=== PATIENT | female | born 1990 | race Two or more races ===

== ENCOUNTER 2024-04-01 11:15 | Inpatient (IN) | payer OTHER ==
[~2024-04-01] VITALS: Ht 162.6 cm; Wt 113.4 kg
--- NOTE | 2024-04-01 11:39 | ED.PDOC ---
GI ASSESSMENT HPI Comments 33 y.o female with PMH of HTN, gastric bypass and presents to the ED for a chief complaint of generalized abdominal pain associated with nausea and vomiting that started 5 days ago. Patient describes pain as sharp, constant, worse today with a rating of 9/10 on the pain scale. Patient is states she is unable to keep food and fluids down. Patient reports liquid diarrhea, but no dysuria, hematuria, fever, chills, hematemesis. Patient denies any substance, alcohol or tobacco use. Time Seen by MD: 11:21 Reviewed Notes: Nurses Notes, Medications, Allergies Allergies: Coded Allergies: NSAIDs (Verified Allergy, Unknown, 04/01/24) Information Source: Patient Mode of Arrival: Ambulatory Timing: Days (5) Duration: Since onset Quality: Sharp Vomitus: Hard Stool: Normal Severity: Moderate Recent: None Recent Hx of: None Pain Location: RLQ Modifying Factors: Nothing Associated sign and symptoms: Nausea, Vomiting, Abdominal Pain Past Medical History PAST MEDICAL HISTORY: HTN Surgical History: Surgical History (Other): Gastric bypass WATER SAFETY INSTRUCTOR History: No Pertinent WATER SAFETY INSTRUCTOR History Family History Family History: Reviewed,noncontributory to illness, No family hx of Cancer, No family hx of DM, No family hx of Heart robert, No family hx of HTN, No family hx ofKidney robert, No family hx of Liver robert, No family hx of Lung robert, No family hx of Stroke Social History Smoker: Non-Smoker Alcohol: Denies ETOH Use Drugs: Denies Drug Use Lives In: Home Constitutional: denies: chills, diaphoresis, fatigue, fever, malaise, sweats, weakness, others EENTM: denies: blurred vision, double vision, ear bleeding, ear discharge, ear drainage, ear pain, ear ringing, eye pain, eye redness, hearing loss, mouth pain, mouth swelling, nasal discharge, nose bleeding, nose congestion, nose pain, photophobia, tearing, throat pain, throat swelling, voice changes, others Respiratory: denies: cough, hemoptysis, orthopnea, SOB at rest, shortness of breath, SOB with excertion, stridor, wheezing, others Cardiovascular: denies: chest pain, dizzy spells, diaphoresis, Dyspnea on exertion, edema, irregular heart beat, left arm pain, lightheadedness, palpitations, PND, syncope, others Gastrointestinal: reports: abdominal pain, nausea, vomiting; denies: abdomen distended, blood streaked bowels, constipated, diarrhea, dysphagia, difficulty swallowing, hematemesis, melena, poor appetite, poor fluid intake, rectal bleeding, rectal pain, others Genitourinary: denies: abnormal vagina bleeding, burning, dyspareunia, dysuria, flank pain, frequency, hematuria, incontinence, pain, , vagina discharge, urgency, others Neurological: denies: dizziness, fainting, headache, left sided numbness, left sided weakness, numbness, paresthesia, pre-existing deficit, right sided numbness, right sided weakness, seizure, speech problems, tingling, tremors, weakness, others Musculoskeletal: denies: back pain, gout, joint pain, joint swelling, muscle pain, muscle stiffness, neck pain, others Integumetry: denies: bruises, change in color, change in hair/nails, dryness, laceration, lesions, lumps, rash, wounds, others Allergic/Immunocompromised: denies: Difficulty Healing, Frequent Infections, H odalis, Itching, others Hematologic/Lymphatic: denies: anemia, blood clots, easy bleeding, easy bruising, swollen glands, others Endocrine: denies: excessive hunger, excessive sweating, excessive thirst, excessive urination, flushing, intolerance to cold, intolerance to heat, unexplained weight gain, unexplained weight loss, others Psychiatric: denies: anxiety, bipolar disorder, depression, hopeless, panic disorder, schizophrenia, sleepless, suicidal, others All Other Systems: Reviewed and Negative Physical Exam General Appearance: Moderate Distress, Obese HEENT: Normal ENT Inspection Neck: Full Range of Motion, Normal Inspection Respiratory: Lungs Clear, No Accessory Muscle Use, No Respiratory Distress, Normal Breath Sounds Cardiovascular: No Edema, No JVD, Regular Rate/Rhythm Breast Exam: Deferred Gastrointestinal: Diffuse, Soft, Tenderness Genitalia: Deferred Pelvic: Deferred Rectal: Deferred Extremities: Normal inspection, Normal range of motion, Non-tender, No pedal edema Neurologic: Alert, No Motor Deficits, Normal Affect, Normal Mood, No Sensory Deficits Cerebellar Function: NOT DONE Reflexes: NOT DONE Skin: Dry, Normal Color, Warm Lymphatic: NOT DONE Was a procedure done? Was a procedure done?: No GI differential Dx Differential Diagnosis: Appendicitis, Bowel Obstruction, Cholecystitis, Esophagitis, Gastritis/PUD, Gastroenteritis, Inflammatory BD, Ischemic Bowel, Pancreatitis, UTI, Dehydration, Diabetes/ DKA, Electrolyte Imbalance, Food Poisoning, , Bacterial, Parasitic, Viral, Hypovolemia, Impaction X-Ray, Labs, Meds, VS Vital Signs Date Time Temp Pulse Resp B/P (MAP) Pulse Ox O2 Delivery O2 Flow Rate FiO2 04/01/24 12:28 76 17 141/96 04/01/24 12:03 83 04/01/24 11:58 79 22 168/116 04/01/24 11:46 98.8 92 16 143/79 (100) 99 Lab Test 04/01/24 11:38 Range/Units White Blood Count 12.7 H 4.4-10.8 10^3/uL Red Blood Count 4.22 4.0-5.20 10^6/uL Hemoglobin 13.3 12.2-16.2 g/dL Hematocrit 39.3 36.0-46.0 % Mean Corpuscular Volume 93.1 80.0-100.0 fL Mean Corpuscular Hemoglobin 31.7 28.0-32.0 pg Mean Corpuscular Hemoglobin Concent 34.0 32.0-36.0 g/dL Red Cell Distribution Width 14.7 H 11.8-14.3 % Platelet Count 263 140-450 10^3/uL Mean Platelet Volume 9.6 6.9-10.8 fL Neutrophils (%) (Auto) 83.1 H 37.0-80.0 % Lymphocytes (%) (Auto) 10.5 10.0-50.0 % Monocytes (%) (Auto) 5.8 0.0-12.0 % Eosinophils (%) (Auto) 0.4 0.0-7.0 % Basophils (%) (Auto) 0.2 0.0-2.0 % Neutrophils # (Auto) 10.5 H 1.6-8.6 10 ^3/uL Lymphocytes # (Auto) 1.3 0.4-5.4 10 ^3/uL Monocytes # (Auto) 0.7 0-1.3 10 ^3/uL Eosinophils # (Auto) 0.1 0-0.8 10 ^3/uL Basophils # (Auto) 0 0-0.2 10 ^3/uL Nucleated Red Blood Cells 0.0 % Sodium Level 138 136-145 mmol/L Potassium Level 4.2 3.5-5.1 mmol/L Chloride Level 106 98-107 mmol/L Carbon Dioxide Level 27 20-31 mmol/L Anion Gap 5 5-15 Blood Urea Nitrogen 8 L 9-23 mg/dL Creatinine 0.68 0.550-1.02 mg/dL Glomerular Filtration Rate Calc 117 >90 mL/min BUN/Creatinine Ratio 11.8 10.0-20.0 Serum Glucose 103 74-106 mg/dL Lactic Acid Level 1.4 0.4-2.0 mmol/L Calcium Level 9.9 8.7-10.4 mg/dL Total Bilirubin 0.5 0.2-1.0 mg/dL Aspartate Amino Transferase (AST) 15 13-40 U/L Alanine Aminotransferase (ALT) 21 7-40 U/L Alkaline Phosphatase 66 46-116 U/L Total Protein 7.4 5.7-8.2 g/dL Albumin 4.4 3.2-4.8 g/dL Lipase 41 12-53 U/L Beta HCG, Quantitative 0.2 L 1.5-4.2 mIU/mL Current Medications Medications (Trade) Dose Ordered Sig/Madina Route Start Time Stop Time Status Last Admin Sodium Chloride 1,000 ml @ 1,000 mls/hr Q1H ONCE IV 04/01/24 11:30 04/01/24 12:29 DC 04/01/24 11:59 Ondansetron HCl (Zofran) 4 mg ONCE ONCE IV 04/01/24 11:30 04/01/24 11:31 DC 04/01/24 11:59 Morphine Sulfate 4 mg ONCE ONCE IV 04/01/24 11:30 04/01/24 11:31 DC 04/01/24 11:58 PROCEDURE(s): ABPL - CT AB PEL WO CON-NO ORAL OR IV REASON: R sided abd pain, n/v/d ORDER NUMBER(s): [id number], ACCESSION NUMBER(s): [id number] Procedure: CT CT AB PEL WO CON-NO ORAL OR IV 04/01/2024 12:31 PM Indication:R sided abd pain, n/v/d. Comparison Study: None available at time of dictation. Technique: Axial images were obtained and reformatted in coronal and sagittal planes. All CT scans at this medical facility are performed using dose modulation techniques as appropriate to a performed exam including the following: Automated exposure control was utilized; adjustment of the MA and/or KV according to patient size; and use of iterative reconstruction technique. CT Dose: CTDI volume is 25 mGy. Dose-length product is 14 11 mGy*cm FINDINGS: Lower Chest: Trace bilateral pleural effusions Hepatobiliary: Unremarkable. Spleen: Unremarkable. Pancreas: Unremarkable. Adrenal Glands: Unremarkable. tract: The kidneys are normal in size bilaterally without hydronephrosis or nephrolithiasis. The urinary bladder is unremarkable. GI tract: Changes of gastric bypass surgery note. No evidence of small bowel obstruction. Mildly fluid distended small bowel loops in midabdomen proximal to herniation in the umbilicus, where fecal like material is seen. Loops of bowel distal to the hernia are collapsed.Scattered colonic diverticula are noted without evidence of diverticulitis. The appendix is normal. Lymphatics: No mesenteric, retroperitoneal or periportal lymphadenopathy. Vasculature: The abdominal aorta is normal in in caliber. Pelvic Organs: Prominent uterine cervix versus retroverted uterus. No adnexal lesions identified. Trace fluid in the cul-de-sac. Bones/soft tissues: Moderate-sized umbilical hernia measuring 5.5 x 4.2 cm with a neck measuring 2 cm at the neck containing small bowel loop. Multilevel degenerative disc disease of the lumbar spine noted. Other: None. IMPRESSION: 1. Developing small bowel obstruction due to umbilical herniation. The hernia measures 2 cm at the neck. Recommend surgical consultation. 2. Trace bilateral pleural effusions. 3. Scattered colonic diverticula without diverticulitis. 4. Retroverted uterus persists prominent uterine cervix. Recommend further evaluation with pelvic sonogram for better delineation of the anatomy. 5. Trace fluid in the cul-de-sac is of uncertain etiology. X-Ray, Labs, Meds, VS Comment 33-year-old female with a history of gastric bypass and hypertension complaining of abdominal pain, vomiting, and inability to tolerate p.o. food and fluids Vitals remarkable for mildly elevated BP of 143/79 Exam remarkable for diffuse abdominal tenderness to palpation. No rebound or guarding. CT abdomen and pelvis: IMPRESSION: 1. Developing small bowel obstruction due to umbilical herniation. The hernia measures 2 cm at the neck. Recommend surgical consultation. 2. Trace bilateral pleural effusions. 3. Scattered colonic diverticula without diverticulitis. 4. Retroverted uterus persists prominent uterine cervix. Recommend further evaluation with pelvic sonogram for better delineation of the anatomy. 5. Trace fluid in the cul-de-sac is of uncertain etiology. CBC, CMP, lactate and test remarkable for WBC 12.7, no other abnormalities of acute significance. UA pending. Patient treated with the following in the ED: 1 L 0.9 normal saline IV bolus, morphine 4 mg IV, Zofran 4 mg IV. NG tube to low intermittent suction was ordered. Stat surgical consultation was placed. Plan is to admit the patient for decompression of SBO and surgical evaluation. Time of 1ST Reevaluation: 11:35 Reevaluation 1ST: Unchanged Time of 2ND Reevaluation: 13:21 Reevaluation 2ND: Improved Patient Education/Counseling: Diagnosis, Treatment, Prognosis Family Education/Counseling: Diagnosis, Treatment, Prognosis Departure 1 Departure Time of Disposition: 13:21 Impression: Primary Impression: Small bowel obstruction Additional Impression: Umbilical hernia Qualified Codes: K42.0 - Umbilical hernia with obstruction, without gangrene Disposition: 09 ADMITTED INPATIENT Admit to: Med Surg Condition: Guarded Critical Care Note Critical Care Time?: No Stability Stability form required: No I personally scribed for LASHANDA MCKENZIE MD ([facility]) on 04/01/24 at 11:39. Electronically submitted by Qing Holcomb ([facility]). I personally scribed for LASHANDA MCKENZIE MD ([facility]) on 04/01/24 at 13:52. Electronically submitted by Qing Holcomb ([facility]). LASHANDA MCKENZIE MD Apr 01, 2024 11:39
[2024-04-01] MEDS: MORPHINE SULFATE 4 MG/ML SYR/VIAL IV ONE (11:58)
[2024-04-01] MEDS: SODIUM CHLORIDE 0.9% 1,000 ML IV ONE ×2 (11:59→16:56)
[2024-04-01] MEDS: ONDANSETRON HCL 4 MG/2 ML VIAL IV ONE ×2 (11:59→17:30)
[2024-04-01 12:00] VITALS: PULSE 93; RESP 22; O2SAT 99
[2024-04-01 12:15] LABS: Basophils # (auto) 0 10 ^3/uL (0-0.2); Basophils % (auto) 0.2 % (0.0-2.0); Eosinophils # (auto) 0.1 10 ^3/uL (0-0.8); Eosinophils % (auto) 0.4 % (0.0-7.0); Hematocrit 39.3 % (36.0-46.0); Hemoglobin 13.3 g/dL (12.2-16.2); Lymphocytes # (auto) 1.3 10 ^3/uL (0.4-5.4); Lymphocytes % (auto) 10.5 % (10.0-50.0); Mean Corpuscular Hemoglobin 31.7 pg (28.0-32.0); Mean Corpuscular Volume 93.1 fL (80.0-100.0); Monocytes # (auto) 0.7 10 ^3/uL (0-1.3); Monocytes % (auto) 5.8 % (0.0-12.0); Neutrophils # (auto) 10.5 10 ^3/uL (1.6-8.6); Neutrophils % (auto) 83.1 % (37.0-80.0); Platelet Count (auto) 263 10^3/uL (140-450); Red Blood Cells 4.22 10^6/uL (4.0-5.20); Red Cell Distribution Width 14.7 % (11.8-14.3); White Blood Cell 12.7 10^3/uL (4.4-10.8)
[2024-04-01 12:21] LABS: Alanine Aminotransferase 21 U/L (7-40); Albumin 4.4 g/dL (3.2-4.8); Alkaline Phosphatase 66 U/L (46-116); Anion Gap 5 (5-15); Aspartate Aminotransferase 15 U/L (13-40); BUN/Creatinine Ratio 11.8 (10.0-20.0); Bilirubin, Total 0.5 mg/dL (0.2-1.0); Blood Urea Nitrogen 8 mg/dL (9-23); Calcium 9.9 mg/dL (8.7-10.4); Carbon Dioxide 27 mmol/L (20-31); Chloride 106 mmol/L (98-107); Glucose 103 mg/dL (74-106); Potassium 4.2 mmol/L (3.5-5.1); Sodium 138 mmol/L (136-145); Total Protein 7.4 g/dL (5.7-8.2)
[2024-04-01 12:34] LABS: Lipase 41 U/L (12-53)
--- NOTE | 2024-04-01 13:15 | DVH ---
Procedure: CT CT AB PEL WO CON-NO ORAL OR IV 04/01/2024 12:31 PM Indication:R sided abd pain, n/v/d. Comparison Study: None available at time of dictation. Technique: Axial images were obtained and reformatted in coronal and sagittal planes. All CT scans at this medical facility are performed using dose modulation techniques as appropriate t o a performed exam including the following: Automated exposure control was utilized; adjustment of th e MA and/or KV according to patient size; and use of iterative reconstruction technique. CT Dose: CTDI volume is 25 mGy. Dose-length product is 14 11 mGy*cm FINDINGS: Lower Chest: Trace bilateral pleural effusions Hepatobiliary: Unremarkable. Spleen: Unremarkable. Pancreas: Unremarkable. Adrenal Glands: Unremarkable. tract: The kidneys are normal in size bilaterally without hydronephrosis or nephrolithiasis. The urinary bladder is unremarkable. GI tract: Changes of gastric bypass surgery note. No evidence of small bowel obstruction. Mildly flui d distended small bowel loops in midabdomen proximal to herniation in the umbilicus, where fecal like material is seen. Loops of bowel distal to the hernia are collapsed.Scattered colonic diverticula ar e noted without evidence of diverticulitis. The appendix is normal. Lymphatics: No mesenteric, retroperitoneal or periportal lymphadenopathy. Vasculature: The abdominal aorta is normal in in caliber. Pelvic Organs: Prominent uterine cervix versus retroverted uterus. No adnexal lesions identified. Tr deb fluid in the cul-de-sac. Bones/soft tissues: Moderate-sized umbilical hernia measuring 5.5 x 4.2 cm with a neck measuring 2 cm at the neck containing small bowel loop. Multilevel degenerative disc disease of the lumbar spine no ryan. Other: None. IMPRESSION: 1. Developing small bowel obstruction due to umbilical herniation. The hernia measures 2 cm at the ne ck. Recommend surgical consultation. 2. Trace bilateral pleural effusions. 3. Scattered colonic diverticula without diverticulitis. 4. Retroverted uterus persists prominent uterine cervix. Recommend further evaluation with pelvic so nogram for better delineation of the anatomy. 5. Trace fluid in the cul-de-sac is of uncertain etiology.
--- NOTE | 2024-04-01 14:43 | DVH ---
EXAM: XY CHEST XRAY 1 VIEW TECHNIQUE: Single frontal chest radiograph CLINICAL HISTORY: NG tube placement COMPARISON: None Findings/Impression: Frontal chest radiograph demonstrates no acute osseous or superficial soft tissue abnormalities. Enteric tube is overlying the plane of the stomach. The trachea is midline. The cardiac silhouette and mediastinum are within normal limits. No pneumothorax, pleural effusions, or consolidations.
--- NOTE | 2024-04-01 15:30 | DVHINCON2 ---
Date of service: Apr 01, 2024 Allergies: Coded Allergies: NSAIDs (Verified Allergy, Unknown, 04/01/24) Vital Signs Vital Signs Date Time Temp Pulse Resp B/P (MAP) Pulse Ox O2 Delivery O2 Flow Rate FiO2 04/01/24 12:28 76 17 141/96 04/01/24 11:46 98.8 99 Labs/Diagnostic Data Labs Test 04/01/24 11:38 Range/Units White Blood Count 12.7 H 4.4-10.8 10^3/uL Red Blood Count 4.22 4.0-5.20 10^6/uL Hemoglobin 13.3 12.2-16.2 g/dL Hematocrit 39.3 36.0-46.0 % Mean Corpuscular Volume 93.1 80.0-100.0 fL Mean Corpuscular Hemoglobin 31.7 28.0-32.0 pg Mean Corpuscular Hemoglobin Concent 34.0 32.0-36.0 g/dL Red Cell Distribution Width 14.7 H 11.8-14.3 % Platelet Count 263 140-450 10^3/uL Mean Platelet Volume 9.6 6.9-10.8 fL Neutrophils (%) (Auto) 83.1 H 37.0-80.0 % Lymphocytes (%) (Auto) 10.5 10.0-50.0 % Monocytes (%) (Auto) 5.8 0.0-12.0 % Eosinophils (%) (Auto) 0.4 0.0-7.0 % Basophils (%) (Auto) 0.2 0.0-2.0 % Neutrophils # (Auto) 10.5 H 1.6-8.6 10 ^3/uL Lymphocytes # (Auto) 1.3 0.4-5.4 10 ^3/uL Monocytes # (Auto) 0.7 0-1.3 10 ^3/uL Eosinophils # (Auto) 0.1 0-0.8 10 ^3/uL Basophils # (Auto) 0 0-0.2 10 ^3/uL Nucleated Red Blood Cells 0.0 % Sodium Level 138 136-145 mmol/L Potassium Level 4.2 3.5-5.1 mmol/L Chloride Level 106 98-107 mmol/L Carbon Dioxide Level 27 20-31 mmol/L Anion Gap 5 5-15 Blood Urea Nitrogen 8 L 9-23 mg/dL Creatinine 0.68 0.550-1.02 mg/dL Glomerular Filtration Rate Calc 117 >90 mL/min BUN/Creatinine Ratio 11.8 10.0-20.0 Serum Glucose 103 74-106 mg/dL Lactic Acid Level 1.4 0.4-2.0 mmol/L Calcium Level 9.9 8.7-10.4 mg/dL Total Bilirubin 0.5 0.2-1.0 mg/dL Aspartate Amino Transferase (AST) 15 13-40 U/L Alanine Aminotransferase (ALT) 21 7-40 U/L Alkaline Phosphatase 66 46-116 U/L Total Protein 7.4 5.7-8.2 g/dL Albumin 4.4 3.2-4.8 g/dL Lipase 41 12-53 U/L Beta HCG, Quantitative 0.2 L 1.5-4.2 mIU/mL Assessment 33 YEAR OLD FEMALE HAD OBESITY OPERATION ABOUT 10 YEARS AGO CAME IN TODAY WITH AN INCARCERATED UMBILICAL HERNIA WITH DEVELOPING SMALL BOWEL OBSTRUCTION. NG TUBE IN PLACE, ABDOMEN NON [id number], TENDER ,DEEP UMBILICAL HERNIA(IRREDUCIB LE). OPERATION, RISKS AND COMPLICATIONS EXPLAINED (MOTHER AT BEDSIDE) Plan discussed with: Patient, Other DIPTI HAWKINS MD Apr 01, 2024 15:30
[2024-04-01] MEDS ORDERED: MIDAZOLAM HCL 2MG/2ML 2ml VIAL (1mg/ml) ONE (15:31)
[2024-04-01] MEDS ORDERED: fentaNYL CITRATE 100 MCG/2 ML VL ONE ×2 (15:31→16:59)
[2024-04-01] MEDS ORDERED: KETAMINE 50mg/ML 1ml syringe ONE (15:33)
[2024-04-01] MEDS ORDERED: diphenhdrAMINE HCL 50 MG/1 ML VL ONE (15:52)
[2024-04-01] MEDS ORDERED: LABE100T7 PO (16:01)
[2024-04-01] MEDS ORDERED: cefTRIAXone 1GM/50ML D5W 50 ML IV ONE (16:15)
[2024-04-01] MEDS ORDERED: ONDANSETRON HCL 4 MG/2 ML VIAL IV PRN (16:15)
[2024-04-01] MEDS ORDERED: SODIUM CHLORIDE 0.9% 1,000 ML IV SCH (16:15)
[2024-04-01] MEDS: BUPIVACAINE HCL 50 ML ONE (16:24)
[2024-04-01] MEDS: LIDOCAINE W/ EPINEPHRINE 2% INJ 20ML VIAL ONE (16:30)
[2024-04-01] MEDS ORDERED: NEOSTIGMINE 1 MG/ML INJ (10mg/10ML VIAL) ONE (16:43)
--- NOTE | 2024-04-01 16:45 | DVHHP2 ---
History of Present Illness Reason for Visit: Abdominal pain History of Present Illness 33 yo obese female with history htn and bypass comes to the ed with acute abdominal pain 03/02 with nausea and vomiting and severe pain patient had CT scan done in the ed showing obstruction and hernia Cardiovascular: HTN Review of Systems Constitutional: No: Fever, Chills, Sweats, Weakness, Malaise, Other Eyes: No: Pain, Vision change, Conjunctivae inflammation, Eyelid inflammation, Other, Redness ENT: No: Ear pain, Ear discharge, Nose pain, Nose discharge, Nose congestion, Mouth pain, Mouth swelling, Throat pain, Throat swelling, Other Respiratory: No: Cough, Dry, Shortness of breath, SOB with excertion, Wheezing, Hemoptysis, Pleuritic Pain, Sputum, Wheezing, Other Cardiovascular: No: Chest Pain, Palpitations, Orthopnea, Paroxysmal Noc. Dyspnea, Edema, Lt Headedness, Other Gastrointestinal: No: Nausea, Vomiting, Abdominal Pain, Diarrhea, Constipation, Melena, Hematochezia, Other Genitourinary: No Dysuria, No Frequency, No Incontinence, No Hematuria, No Retention, No Other Musculoskeletal: No: other, neck pain, shoulder pain, arm pain, back pain, hand pain, leg pain, foot pain Skin: No: Rash, Lesions, Jaundice, Bruising, Other Neurological: No: Weakness, Numbness, Incoordination, Change in speech, Confusion, Seizures, Other Allergies: Coded Allergies: NSAIDs (Verified Allergy, Unknown, 04/01/24) Exam Vital Signs Vital Signs Date Time Temp Pulse Resp B/P (MAP) Pulse Ox O2 Delivery O2 Flow Rate FiO2 04/01/24 12:28 76 17 141/96 04/01/24 11:46 98.8 99 General Appearance: Alert, Oriented X3 HEENT: Atraumatic, PERRLA Respiratory: Clear to auscultation, Normal air movement Cardiovascular: Regular rate Abdominal: Normal bowel sounds Extremities: No clubbing, No cyanosis Skin: No rashes Neuro: Normal gait, Normal speech Psych/Mental Status: Mood NL Labs/Xrays Labs Test 04/01/24 11:38 Range/Units White Blood Count 12.7 H 4.4-10.8 10^3/uL Red Blood Count 4.22 4.0-5.20 10^6/uL Hemoglobin 13.3 12.2-16.2 g/dL Hematocrit 39.3 36.0-46.0 % Mean Corpuscular Volume 93.1 80.0-100.0 fL Mean Corpuscular Hemoglobin 31.7 28.0-32.0 pg Mean Corpuscular Hemoglobin Concent 34.0 32.0-36.0 g/dL Red Cell Distribution Width 14.7 H 11.8-14.3 % Platelet Count 263 140-450 10^3/uL Mean Platelet Volume 9.6 6.9-10.8 fL Neutrophils (%) (Auto) 83.1 H 37.0-80.0 % Lymphocytes (%) (Auto) 10.5 10.0-50.0 % Monocytes (%) (Auto) 5.8 0.0-12.0 % Eosinophils (%) (Auto) 0.4 0.0-7.0 % Basophils (%) (Auto) 0.2 0.0-2.0 % Neutrophils # (Auto) 10.5 H 1.6-8.6 10 ^3/uL Lymphocytes # (Auto) 1.3 0.4-5.4 10 ^3/uL Monocytes # (Auto) 0.7 0-1.3 10 ^3/uL Eosinophils # (Auto) 0.1 0-0.8 10 ^3/uL Basophils # (Auto) 0 0-0.2 10 ^3/uL Nucleated Red Blood Cells 0.0 % Sodium Level 138 136-145 mmol/L Potassium Level 4.2 3.5-5.1 mmol/L Chloride Level 106 98-107 mmol/L Carbon Dioxide Level 27 20-31 mmol/L Anion Gap 5 5-15 Blood Urea Nitrogen 8 L 9-23 mg/dL Creatinine 0.68 0.550-1.02 mg/dL Glomerular Filtration Rate Calc 117 >90 mL/min BUN/Creatinine Ratio 11.8 10.0-20.0 Serum Glucose 103 74-106 mg/dL Lactic Acid Level 1.4 0.4-2.0 mmol/L Calcium Level 9.9 8.7-10.4 mg/dL Total Bilirubin 0.5 0.2-1.0 mg/dL Aspartate Amino Transferase (AST) 15 13-40 U/L Alanine Aminotransferase (ALT) 21 7-40 U/L Alkaline Phosphatase 66 46-116 U/L Total Protein 7.4 5.7-8.2 g/dL Albumin 4.4 3.2-4.8 g/dL Lipase 41 12-53 U/L Beta HCG, Quantitative 0.2 L 1.5-4.2 mIU/mL Assessment/Plan Assessment/Plan Admit to Med/Surg Small Bowel Obstruction Surgery Consulted in the ED Patient being taken to surgery Bowel regimen NPO NGT in Place HTN c/w home meds after surgery clearance and completed Plan discussed with: Patient Date of Service: Apr 01, 2024 Billing Provider: TOSHIA CRAWFORD MD Common Visit Codes: [id number] INP/OBS CARE (HIGH) TOSHIA CRAWFORD MD Apr 01, 2024 16:45
[2024-04-01 17:14] VITALS: PULSE 90; RESP 13; O2SAT 94
[2024-04-01] MEDS ORDERED: HYDROmorphone HCL 2 MG/ML VL/or syr IV PRN ×2 (17:30)
[2024-04-01] MEDS: HYDROmorphone HCL 2 MG/ML VL/or syr IV PRN (17:35)
[2024-04-01] MEDS: SUCCINYLCHOLINE CHLORIDE 20 MG/ML 10ML VIAL IV ONE (17:49)
[2024-04-01] MEDS: HYDROmorphone HCL 2 MG/ML VL/or syr ONE (17:49)
--- NOTE | 2024-04-01 17:50 | DVHOP ---
DATE OF SURGERY: 04/01/2024 PREOPERATIVE DIAGNOSIS: Incarcerated umbilical hernia with impending small bowel obstruction. POSTOPERATIVE DIAGNOSIS: Incarcerated umbilical hernia with impending small bowel obstruction. SURGEON: Mikhail Hinds MD GAS REGULATOR REPAIRER: Nahid De Los Santos NP ANESTHESIA: General endotracheal. ANESTHESIOLOGIST: Dr. De La O. PROCEDURE: Repair of incarcerated umbilical hernia. DESCRIPTION OF PROCEDURE: Under adequate anesthesia, with the patient's skin prepped and draped, a vertical incision was made centered around the umbilicus where there was a palpable bulge within the depths of the umbilicus. This was exposed through dissection of much adipose tissue. The defect in the fascia was encountered. However, there were no bowel loops within the defect at the time of this exploration. The fluid was aspirated from the pelvis, which appeared non-turbid to non-hemorrhagic. The sac was excised in its entirety. The fascial defect was then approximated using nonabsorbable sutures. The defect measured approximately 1.5 cm in diameter. The subcutaneous tissues were irrigated, hemostasis meticulously accomplished. Subcutaneous tissues and skin approximated using Monocryl sutures, Dermabond glue and Steri-Strips. The patient remained stable throughout the procedure, left the operating room following an accurate needle and sponge count. Her family was thoroughly informed in the waiting room. Mikhail Hinds MD PF TID: [id number] RECEIPT: [id number]
[2024-04-01 18:28] VITALS: BP 122/75; PULSE 78; RESP 18; O2SAT 99
[2024-04-01] MEDS: D5W/SOD CHL 0.45%/KCL 20MEQ 1,000 ML IV SCH (19:17)
[2024-04-01 21:00] VITALS: BP 112/75; PULSE 85; RESP 16; TEMP 98.9; O2SAT 95
[2024-04-01] MEDS: ceFAZolin 2 GM/D5W50ml 50 ML IV SCH (21:06)
[2024-04-01] MEDS: LABETALOL HCL 200 MG TAB PO SCH (21:09)
[2024-04-02] VITALS (7 sets, daily range): BP systolic 106–128; BP diastolic 64–82; PULSE 71–89; RESP 16–18; TEMP 98.1–98.9; O2SAT 92–98
[2024-04-02 07:17] LABS: Basophils # (auto) 0 10 ^3/uL (0-0.2); Eosinophils # (auto) 0.1 10 ^3/uL (0-0.8); Eosinophils % (auto) 0.6 % (0.0-7.0); Hematocrit 38.8 % (36.0-46.0); Hemoglobin 13.1 g/dL (12.2-16.2); Lymphocytes # (auto) 1.1 10 ^3/uL (0.4-5.4); Lymphocytes % (auto) 7.4 % (10.0-50.0); Mean Corpuscular Hemoglobin 31.9 pg (28.0-32.0); Mean Corpuscular Hgb Conc. 33.9 g/dL (32.0-36.0); Monocytes # (auto) 1.3 10 ^3/uL (0-1.3); Monocytes % (auto) 8.5 % (0.0-12.0); Neutrophils # (auto) 12.7 10 ^3/uL (1.6-8.6); Neutrophils % (auto) 83.5 % (37.0-80.0); Platelet Count (auto) 236 10^3/uL (140-450); Red Blood Cells 4.13 10^6/uL (4.0-5.20); Red Cell Distribution Width 14.8 % (11.8-14.3); White Blood Cell 15.2 10^3/uL (4.4-10.8)
[2024-04-02 07:32] LABS: Chloride 107 mmol/L (98-107); Sodium 139 mmol/L (136-145)
[2024-04-02 07:33] LABS: Anion Gap 4 (5-15); Calcium 9.2 mg/dL (8.7-10.4); Carbon Dioxide 28 mmol/L (20-31)
[2024-04-02 07:38] LABS: BUN/Creatinine Ratio 10.9 (10.0-20.0); Blood Urea Nitrogen 7 mg/dL (9-23); Glucose 104 mg/dL (74-106)
[2024-04-02] MEDS: MORPHINE SULFATE INJ 2 MG/ml SYRG IV PRN (10:14)
--- NOTE | 2024-04-02 14:26 | DVHPN2 ---
Progress Note Date Seen: Apr 02, 2024 Medical Necessity Reason Pt with a Central, PICC or Fol: No Objective vital signs Vital Sign Date Time Temp Pulse Resp B/P (MAP) Pulse Ox O2 Delivery O2 Flow Rate FiO2 04/02/24 12:48 98.3 77 16 113/64 (80) 92 98.3 04/01/24 19:50 Nasal Cannula* 2 28 Total Intake and Output 04/01/24 04/01/24 04/02/24 15:00 23:00 07:00 Intake Total 1000 ml 70 ml 960 ml Output Total 50 ml Balance 950 ml 70 ml 960 ml medications Current Medications Medications Dose Ordered Sig/Madina Route Start Time Stop Time Status Last Admin Dose Admin Sodium Chloride 1,000 ml @ 60 mls/hr [id number] IV 04/01/24 16:15 Cancel Ondansetron HCl 4 mg Q4HP PRN IV 04/01/24 16:15 Morphine Sulfate 2 mg Q4HPRN PRN IV 04/01/24 16:15 04/02/24 10:14 2 MG Cefazolin Sodium/ Dextrose 50 ml @ 50 mls/hr Q8HR IV 04/01/24 22:00 04/02/24 05:34 50 MLS/HR Potassium Chloride/Dextrose/ Sod Cl 1,000 ml @ 120 mls/hr Q8H20M IV 04/01/24 17:00 04/02/24 09:47 120 MLS/HR Labetalol HCl 100 mg BID PO 04/01/24 22:00 04/02/24 10:13 100 MG laboratory and microbiology Laboratory Tests 04/02/24 05:56 Test 04/02/24 05:56 Range/Units Serum Glucose 104 74-106 mg/dL Problem List/Assessment/Plan Problem List/Assessment/Plan 04/02/24 PASSING FLATUS, WOUND CLEAN AND WELL APPROXIMATED, ABDOMEN NON TENDER, WILL ALLOW PO INTAKE, MAY BE DISCHARGED TOMORROW Plan discussed with: Patient DIPTI HAWKINS MD Apr 02, 2024 14:26
--- NOTE | 2024-04-02 23:12 | DVHPN2 ---
Subjective The patient is seen and examined at bedside. The patient just had surgery last night. Still have abdominal pain and weak. Denied nausea or vomiting or fever. Reviewed: Care Plan, H&P, Labs, Medications, Previous Orders, Radiology Changes from previous H/P or p: No Changes Eyes: No Pain, No Vision change, No Conjunctivae inflammation, No Eyelid inflammation, No Other, No Redness ENT: No Ear pain, No Ear discharge, No Nose pain, No Nose discharge, No Nose congestion, No Mouth pain, No Mouth swelling, No Throat pain, No Throat swelling, No Other Cardiovascular: No Chest Pain, No Palpitations, No Orthopnea, No Paroxysmal Noc. Dyspnea, No Edema, No Lt Headedness, No Other Respiratory: No Cough, No Dry, No Shortness of breath, No SOB with excertion, No Wheezing, No Hemoptysis, No Pleuritic Pain, No Sputum, No Other Gastrointestinal: No Nausea, No Vomiting, No Abdominal Pain, No Diarrhea, No Constipation, No Melena, No Hematochezia, No Other Genitourinary: No Dysuria, No Frequency, No Incontinence, No Hematuria, No Retention, No Other Musculoskeletal: No other, No neck pain, No shoulder pain, No arm pain, No back pain, No hand pain, No leg pain, No foot pain Skin: No Rash, No Lesions, No Jaundice, No Bruising, No Other Objective Vitals Vital Signs Date Time Temp Pulse Resp B/P (MAP) Pulse Ox O2 Delivery O2 Flow Rate FiO2 04/02/24 21:59 85 118/76 04/02/24 20:55 98.9 18 93 98.9 04/02/24 08:00 Nasal Cannula* 2 28 Intake/Output Intake and Output 04/02/24 07:00 Intake Total 2030 ml Output Total 50 ml Balance 1980 ml IV Total 2030 ml Output Gastric Drainage Total 50 ml # Voids 4 General Appearance: Alert, Cooperative, mild distress HEENT: Atraumatic, PERRLA, EOMI, Mucous membr. moist/pink Neck: Supple Lungs: Clear to auscultation, Normal air movement Cardiovascular: Regular rate, Normal S1, Normal S2, No murmurs, Gallops, Rubs Abdomen: Normal bowel sounds, Soft, No tenderness Neuro: Cranial nerves 3-12 NL Psych/Mental Status: Mental status NL Medications Current Medications Medications Dose Ordered Sig/Madina Route Start Time Stop Time Status Last Admin Dose Admin Sodium Chloride 1,000 ml @ 60 mls/hr [id number] IV 04/01/24 16:15 Cancel Ondansetron HCl 4 mg Q4HP PRN IV 04/01/24 16:15 Morphine Sulfate 2 mg Q4HPRN PRN IV 04/01/24 16:15 04/02/24 10:14 2 MG Cefazolin Sodium/ Dextrose 50 ml @ 50 mls/hr Q8HR IV 04/01/24 22:00 04/02/24 22:00 50 MLS/HR Potassium Chloride/Dextrose/ Sod Cl 1,000 ml @ 120 mls/hr Q8H20M IV 04/01/24 17:00 04/02/24 18:10 120 MLS/HR Labetalol HCl 100 mg BID PO 04/01/24 22:00 04/02/24 21:59 100 MG Laboratory Results Laboratory Tests 04/02/24 05:56 Chemistry Test 04/02/24 05:56 Calcium Level 9.2 mg/dL (8.7-10.4) Labs and/or images reviewed: Labs reviewed by me Assessment/Plan Assessment/Plan Umbilical hernia with incarcerated Small bowel obstruction Severe abdominal pain secondary to above Intractable nausea and vomiting. Continuing current management. Continuing with IV fluid. Continuing with IV antibiotic. Continuing with pain control. Diet advanced per surgeon. Plan discussed with: Patient Date of Service: Apr 02, 2024 Billing Provider: ZHANG HERNANDEZ MD Common Visit Codes: [id number] INP/OBS CARE(HIGH) ZHANG HERNANDEZ MD Apr 02, 2024 23:12
[2024-04-03 00:39] VITALS: BP 102/67; PULSE 61; RESP 18; TEMP 97.1; O2SAT 100
[2024-04-03 05:00] VITALS: BP 112/68; PULSE 72; RESP 17; TEMP 98.5; O2SAT 96
[2024-04-03 08:38] VITALS: BP 126/79; PULSE 80; RESP 16; TEMP 98.1; O2SAT 95
[2024-04-03] MEDS ORDERED: DexAMETHasone SOD PHOS 10MG/1ML VIAL INJ IV ONE (11:16)
[2024-04-03] MEDS ORDERED: ROCURONIUM 10MG/ML 10ML VIAL IV ONE (11:16)
[2024-04-03] MEDS ORDERED: METOCLOPRAMIDE HCL 5MG/ml INJ 2ml VIAL IV ONE (11:17)
--- NOTE | 2024-04-03 11:37 | DVHPN2 ---
Eyes: No Pain, No Vision change, No Conjunctivae inflammation, No Eyelid inflammation, No Other, No Redness ENT: No Ear pain, No Ear discharge, No Nose pain, No Nose discharge, No Nose congestion, No Mouth pain, No Mouth swelling, No Throat pain, No Throat swelling, No Other Cardiovascular: No Chest Pain, No Palpitations, No Orthopnea, No Paroxysmal Noc. Dyspnea, No Edema, No Lt Headedness, No Other Respiratory: No Cough, No Dry, No Shortness of breath, No SOB with excertion, No Wheezing, No Hemoptysis, No Pleuritic Pain, No Sputum, No Other Gastrointestinal: No Nausea, No Vomiting, No Abdominal Pain, No Diarrhea, No Constipation, No Melena, No Hematochezia, No Other Genitourinary: No Dysuria, No Frequency, No Incontinence, No Hematuria, No Retention, No Other Musculoskeletal: No other, No neck pain, No shoulder pain, No arm pain, No back pain, No hand pain, No leg pain, No foot pain Skin: No Rash, No Lesions, No Jaundice, No Bruising, No Other Objective Vitals Vital Signs Date Time Temp Pulse Resp B/P (MAP) Pulse Ox O2 Delivery O2 Flow Rate FiO2 04/03/24 10:08 81 120/87 04/03/24 08:38 98.1 16 95 98.1 04/02/24 20:00 Room Air* 0 21 Intake/Output Intake and Output 04/03/24 07:00 Intake Total 870 ml Balance 870 ml Intake Oral 0 ml IV Total 870 ml # Voids 6 Medications Current Medications Medications Dose Ordered Sig/Madina Route Start Time Stop Time Status Last Admin Dose Admin Sodium Chloride 1,000 ml @ 60 mls/hr [id number] IV 04/01/24 16:15 Cancel Ondansetron HCl 4 mg Q4HP PRN IV 04/01/24 16:15 Morphine Sulfate 2 mg Q4HPRN PRN IV 04/01/24 16:15 04/02/24 10:14 2 MG Cefazolin Sodium/ Dextrose 50 ml @ 50 mls/hr Q8HR IV 04/01/24 22:00 04/03/24 05:22 50 MLS/HR Potassium Chloride/Dextrose/ Sod Cl 1,000 ml @ 120 mls/hr Q8H20M IV 04/01/24 17:00 04/03/24 10:13 120 MLS/HR Labetalol HCl 100 mg BID PO 04/01/24 22:00 04/03/24 10:08 100 MG Laboratory Results Laboratory Tests 04/02/24 05:56 Assessment/Plan My Orders Orders - ZHANG HERNANDEZ MD Procedure Category Date Status Time Clear Liq Diet DIET 04/03/24 Transmitted Breakfast ZHANG HERNANDEZ MD Apr 03, 2024 11:37
[2024-04-03] MEDS ORDERED: CEPH250C PO (12:16)
[2024-04-03] MEDS ORDERED: HYDR-4902 PO (12:16)
--- NOTE | 2024-04-03 12:20 | DVHDS2 ---
Discharge Summary Date of Admission Apr 01, 2024 at 16:02 Date of Discharge: Apr 03, 2024 Admitting Diagnosis Umbilical hernia with incarcerated Small bowel obstruction Severe abdominal pain secondary to above Intractable nausea and vomiting. Labs/Diagnostic Data: Laboratory Results Test 04/02/24 05:56 04/01/24 11:38 White Blood Count 15.2 10^3/uL (4.4-10.8) Red Blood Count 4.13 10^6/uL (4.0-5.20) Hemoglobin 13.1 g/dL (12.2-16.2) Hematocrit 38.8 % (36.0-46.0) Mean Corpuscular Volume 94.0 fL (80.0-100.0) Mean Corpuscular Hemoglobin 31.9 pg (28.0-32.0) Mean Corpuscular Hemoglobin Concent 33.9 g/dL (32.0-36.0) Red Cell Distribution Width 14.8 % (11.8-14.3) Platelet Count 236 10^3/uL (140-450) Mean Platelet Volume 9.8 fL (6.9-10.8) Neutrophils (%) (Auto) 83.5 % (37.0-80.0) Lymphocytes (%) (Auto) 7.4 % (10.0-50.0) Monocytes (%) (Auto) 8.5 % (0.0-12.0) Eosinophils (%) (Auto) 0.6 % (0.0-7.0) Basophils (%) (Auto) 0.0 % (0.0-2.0) Neutrophils # (Auto) 12.7 10 ^3/uL (1.6-8.6) Lymphocytes # (Auto) 1.1 10 ^3/uL (0.4-5.4) Monocytes # (Auto) 1.3 10 ^3/uL (0-1.3) Eosinophils # (Auto) 0.1 10 ^3/uL (0-0.8) Basophils # (Auto) 0 10 ^3/uL (0-0.2) Nucleated Red Blood Cells 0.0 % Sodium Level 139 mmol/L (136-145) Potassium Level 4.0 mmol/L (3.5-5.1) Chloride Level 107 mmol/L (98-107) Carbon Dioxide Level 28 mmol/L (20-31) Anion Gap 4 (5-15) Blood Urea Nitrogen 7 mg/dL (9-23) Creatinine 0.64 mg/dL (0.550-1.02) Glomerular Filtration Rate Calc 119 mL/min (>90) BUN/Creatinine Ratio 10.9 (10.0-20.0) Serum Glucose 104 mg/dL (74-106) Calcium Level 9.2 mg/dL (8.7-10.4) Lactic Acid Level 1.4 mmol/L (0.4-2.0) Total Bilirubin 0.5 mg/dL (0.2-1.0) Aspartate Amino Transferase (AST) 15 U/L (13-40) Alanine Aminotransferase (ALT) 21 U/L (7-40) Alkaline Phosphatase 66 U/L (46-116) Total Protein 7.4 g/dL (5.7-8.2) Albumin 4.4 g/dL (3.2-4.8) Lipase 41 U/L (12-53) Beta HCG, Quantitative 0.2 mIU/mL (1.5-4.2) Other Laboratory Tests 04/02/24 05:56 Brief Hx & Hospital Course: This is a 33 years old female with no known past medical history except gastric bypass come to emergency department because severe abdominal pain. The patient also had nausea and vomiting but no fever. Workup was done in the emergency department showed the patient has umbilical hernia with small bowel obstruction. The patient subsequently had surgery done by Dr. Hinds. Advised the patient to follow up with Dr. Hinds per schedule for postop follow up. Activity as tolerated. Diet per home diet. Follow up with primary care physician 1-2 weeks. Do not lift anything more than 10 lb for two weeks. Physical exam: HEENT: Normocephalic atraumatic pupils equal react to light and accommodation. Extraocular muscles intact, conjunctiva pink, oropharynx moist, no thrush, no exudate. Lymphatic: No lymphadenopathy Cardiovascular exam: S1, S2 was heard. No murmurs, rubs, gallops Lung: Clear on auscultation bilaterally, no wheeze, rale, rhonchi. GI: Abdominal soft, nondistended, nontenderness, positive bowel sounds. Extremity: No crepitus, cyanosis, edema. Pedal pulses present bilateral. Full range of motion. Skin: Normal turgor, no rash. Psych: Alert, oriented x3. Neurology: No focal deficits, cranial nerve II to XII grossly intact. Condition at Discharge: Stable Final Diagnosis/Problems List Umbilical hernia with incarcerated Small bowel obstruction Severe abdominal pain secondary to above Intractable nausea and vomiting. Discharge Disposition: Home Discharge Instruct/Medications Diet: Regular Activity: No Restrictions, As Tolerated Activity comment: do not lift any object more than 10 lbs for 2 weeks Follow Up/Referral: pcp 1-2 week Medications: resume home meds norco 5/325 one tab q6 hPRN Keflex 250mg q6h Discharge Statement: "Patient was advised to return to the ER or call 911 if any headaches, dizziness, shortness of breath, chest pain, abdominal pain, bleeding, fevers, or worsening of medical condition. Patient was counseled about treatment plan, medications, possible side effects, patientverbalized understanding. All questions were answered to the best of my ability. This discharge took greater then 30 minutes in planning, reviewing documentation, counseling the patient, and discussing with other team members." ASSESSMENT ASSESSMENT Assessment Hernia repaired Date of Service: Apr 03, 2024 Billing Provider: ZHANG HERNANDEZ MD Common Visit Codes: [id number] DISCH DAY >30min ZHANG HERNANDEZ MD Apr 03, 2024 12:20
[2024-04-03 13:00] VITALS: BP 125/70; PULSE 98; RESP 16; TEMP 97.7; O2SAT 95
[2024-04-03 17:02] VITALS: BP_SYST 105; BP_SYST 124; BP_DIAS 69; BP_DIAS 89; PULSE 85; PULSE 92; RESP 16; RESP 20; TEMP 97.7; TEMP 98; O2SAT 96; O2SAT 99
== END 2024-04-03 17:00 | disposition home or self-care (01) | DRG 354 ==
LOC: ER 11:15 → OVERFLOW 16:02 → ER 16:08 → WEST WING 18:13
PROVIDERS: ADMIT Hospitalist; ATTEND Internal Medicine
PROC: 0WQF0ZZ Repair Abdominal Wall, Open Approach (ICD-10-PCS; principal; 2024-04-01 16:03)
DX: K42.0 Umbilical hernia with obstruction, without gangrene (principal); Z68.41 Body mass index [BMI] 40.0-44.9, adult; I10 Essential (primary) hypertension; Z98.84 Bariatric surgery status; Z79.899 Other long term (current) drug therapy; E66.01 Morbid (severe) obesity due to excess calories
CPT/HCPCS: 36415; 71045; 74176; 80048; 80053; 83605; 83690; 84702; 85025; 88302; 96374; 96375; 99291; G0378; J0330; J1100; J2250; J2405; J3490